=== PATIENT | female | born 1950 | race Caucasian/White ===

== ENCOUNTER 2018-11-12 13:54 | Emergency (ER) | payer MEDICARE, OTHER ==
[2018-11-12] MEDS ORDERED: ACETAMINOPHEN 500 MG TAB PO STA (16:29)
[2018-11-12] MEDS ORDERED: KETOROLAC 30 MG INJ IM STA (16:29)
[2018-11-12] MEDS ORDERED: traMADol 50 MG TAB PO ONE (16:30)
[2018-11-12] MEDS ORDERED: TRAM50TA2 PO (18:06)
[2018-11-12] MEDS ORDERED: NAPR-683 PO (18:06)
[2018-11-12 18:56] VITALS: BP 171/81; PULSE 61; RESP 18
--- NOTE | 2018-11-13 00:13 | ERD ---
ER Documentation Chief Complaint Chief Complaint Hand injury HPI History of Present Illness: 68-year-old female with past medical history of hyperlipidemia coming in today with complaint of left wrist and hand pain. Patient reports a mechanical fall yesterday, denies loss of consciousness or hitting head. Patient denies any other associated symptoms. At home pharmacological/nonpharmacological treatment for symptoms: Denies Denies social concerns; Denies recent foreign travel ROS All systems reviewed and are negative except as per history of present illness. Medications Home Meds Active Scripts Naproxen* (Naproxen*) 250 Mg Tablet, 250 MG PO BID PRN for PAIN AND/OR INFLAMMATION, #30 TAB Prov:MICHELA CRUZ V WORSHIP DIRECTOR 11/12/18 Tramadol HCl (Tramadol HCl) 50 Mg Tablet, 50 MG PO Q8, #20 TAB Prov:MICHELA CRUZ V WORSHIP DIRECTOR 11/12/18 Allergies Allergies: Coded Allergies: Unknown: Unable to obtain (Unverified , 05/28/15) PMhx/Soc History of Surgery: No Anesthesia Reaction: No Hx Neurological Disorder: No Hx Respiratory Disorders: No Hx Cardiac Disorders: No Hx Psychiatric Problems: No Hx Miscellaneous Medical Probl: Yes (HIGH CHOLESTEROL) Hx Alcohol Use: Yes Hx Substance Use: No Hx Tobacco Use: No Smoking Status: Never smoker FmHx Family History: No diabetes, No coronary disease Physical Exam Vitals Vital Signs Date Temp Pulse Resp B/P (MAP) Pulse Ox O2 O2 Flow FiO2 Time Delivery Rate 11/12/18 97.8 61 18 171/81 97 Room Air 18:56 (111) Physical Exam Const: No acute distress Head: Atraumatic Eyes: Normal Conjunctiva ENT: Normal External Ears, Nose and Mouth. Neck: Full range of motion. No meningismus. Resp: Clear to auscultation bilaterally Cardio: Regular rate and rhythm, no murmurs Abd: Soft, non tender, non distended. Normal bowel sounds Skin: No petechiae or rashes Back: No midline or flank tenderness Ext: No cyanosis, or edema, tenderness to palpation over left wrist, neurovascularly intact; contusion to top of left hand Neur: Awake and alert Psych: Normal Mood and Affect Results 24 hrs Current Medications Medications Dose Sig/Mingo Start Time Status Last (Trade) Ordered Route PRN Stop Time Admin Dose Reason Admin Ketorolac 30 mg ONCE STAT 11/12/18 DC 11/12/18 Tromethamine IM 16:29 11/12/18 16:45 (Toradol) 16:31 Tramadol 50 mg ONCE ONCE 11/12/18 DC 11/12/18 HCl PO 16:30 11/12/18 16:46 (Ultram) 16:31 1,000 mg ONCE STAT 11/12/18 DC 11/12/18 Acetaminophen PO 16:29 11/12/18 16:45 (Tylenol 16:31 Tab) Procedures/MDM ED course includes a thorough examination and history. Medications: Ketorolac, tramadol acetaminophen, Imaging: Left wrist and hand x-ray Labs: -- Low suspicion for life-threatening medical emergency. Low suspicion for orth opedic emergency that requires hospitalization or immediate surgical intervention. Otherwise healthy patient presenting with constellation of symptoms likely representing uncomplicated wrist pain/injury of wrist as characterized by history, physical exam findings, radiologic findings. X-ray results showing: IMPRESSION: 1. No acute abnormality. RPTAT: HMVK .Jeremi Chou MD, MD IMPRESSION: 1. Mild degenerative change. 2. Mild diffuse sclerosis of the lunate. This may indicate avascular necrosis. Correlation with MRI should be considered. 3. Otherwise unremarkable images of the left wrist. RPTAT: QQ .Nitesh Galindo MD, MD No respiratory distress, otherwise relatively well appearing and nontoxic. Patient reassessment: Patient with decreased pain after medication Aministr ation. Questions answered. Disposition given. Patient educated on diagnoses, prescriptions, follow-up care, return precautions. Strict return precautions given for worsening condition; questions answered discharge. Disposition for discharge with followup in 2 days with PCP/clinic. Departure Diagnosis: Primary Impression: Injury of wrist, left Encounter type: initial encounter Qualified Codes: S69.92XA - Unspecified injury of left wrist, hand and finger(s), initial encounter Condition: Stable Patient Instructions: Wrist Sprain Referrals: COMM[facility] YOU HAVE RECEIVED A MEDICAL SCREENING EXAM AND THE RESULTS INDICATE THAT YOU DO NOT HAVE A CONDITION THAT REQUIRES URGENT TREATMENT IN THE EMERGENCY DEPARTMENT. FURTHER EVALUATION AND TREATMENT OF YOUR CONDITION CAN WAIT UNTIL YOU ARE SEEN IN YOUR DOCTORS OFFICE WITHIN THE NEXT 1-2 DAYS. IT IS YOUR RESPONSIBILITY TO MAKE AN APPOINTMENT FOR FOLOW-UP CARE. IF YOU HAVE A PRIMARY DOCTOR --you should call your primary doctor and schedule an appointment IF YOU DO NOT HAVE A PRIMARY DOCTOR YOU CAN CALL OUR PHYSICIAN REFERRAL HOTLINE AT IF YOU CAN NOT AFFORD TO SEE A PHYSICIAN YOU CAN CHOSE FROM THE FOLLOWING [facility] [address] [facility] [address] [facility] [address] [facility] [address] [facility] [facility] [address] [facility] [facility] [address] [facility] [facility]. [address] [facility]. [facility] YOU HAVE RECEIVED A MEDICAL SCREENING EXAM AND THE RESULTS INDICATE THAT YOU DO NOT HAVE A CONDITION THAT REQUIRES URGENT TREATMENT IN THE EMERGENCY DEPARTMENT. FURTHER EVALUATION AND TREATMENT OF YOUR CONDITION CAN WAIT UNTIL YOU ARE SEEN IN YOUR DOCTORS OFFICE WITHIN THE NEXT 1-2 DAYS. IT IS YOUR RESPONSIBILITY TO MAKE AN APPOINTMENT FOR FOLOW-UP CARE. IF YOU HAVE A PRIMARY DOCTOR --you should call your primary doctor and schedule and appointment IF YOU DO NOT HAVE A PRIMARY DOCTOR YOU CAN CALL OUR PHYSICIAN REFERRAL HOTLINE AT . IF YOU CAN NOT AFFORD TO SEE A PHYSICIAN YOU CAN CHOSE FROM THE FOLLOWING [facility] INSTITUTIONS: [facility] [address] [place] [address] [facility] [address] [place] [address] [facility] + [facility] [address] [place] [address] Additional Instructions: Thank you very much for allowing us to participate in your care. Your health and safety is our top priority at [facility]. It is important to read all discharge instructions and education provided in your discharge packet. Call your primary care doctor TOMORROW for an appointment during the next 2-4 days and bring all the information and medications prescribed. Have prescriptions filled and follow precisely the directions on the label. -Naproxen is a anti-inflammatory/pain medication; take this medication daily as prescribed for the next week to help with swelling/inflammation/pain. -Tramadol is an opiate pain medication; take this medication as needed for moderate to severe pain. No operating of heavy machinery while taking this medication. It may cause drowsiness. If the symptoms get worse and your provider is unavailable, return to the Emergency Department immediately. MICHELA CRUZ NP November 13, 2018 00:13
== END 2018-11-12 18:57 | disposition home or self-care (01) ==
LOC: FTE 13:54
DX: S60.222A Contusion of left hand, initial encounter (principal); W18.39XA Other fall on same level, initial encounter; Y92.9 Unspecified place or not applicable
CPT/HCPCS: 29125; 73110; 73130; 96372; 99284; J1885